=== PATIENT | male | born 2000 | race Caucasian/White ===

== ENCOUNTER 2024-03-24 18:38 | Emergency (ER) | payer MEDICAID, OTHER ==
[~2024-03-24] VITALS: Ht 170.2 cm; Wt 81.0 kg
--- NOTE | 2024-03-24 18:53 | ED.PDOC ---
Psychiatric HPI Comments 23 Y M CLAIRE, presents to ED with CC of mental health. Per EMS, patient is coming from home where father called EMS due to son actively hallucinating in his room. Per EMS patient's father states, that patient does have a mental disability however, did not specify. Patient is actively hallucinating and no other medical history is obtainable at this time. Patient does deny HI or SI. Chief Complaint: Mental Health Time Seen by MD: 18:50 Reviewed Notes: Nurses Notes, Transformation Consultant Notes, Allergies Information Source: Patient, Emergency Med Personnel Mode of Arrival: EMS Severity of Pain: None Severity of Mental Status: None Severity of Symptoms: None Timing: Days Presents with: None Ingestion: None Circumstance: None Current substance abuse: None Stressors: None History of: None Quality: Hallucinations Location: None Location of pain or injury: None Associated signs and symptoms: Hallucinations Past Medical History PAST MEDICAL HISTORY: Denies Surgical History: Denies all surgeries Family History Family History: Unknown Social History Smoker: Pt Confused Alcohol: Pt Confused Drugs: Pt Confused Lives In: Pt Confused Unable to Obtain due to: Altered Mental Status Physical Exam General Appearance: Other (The patient was acting bizarre) HEENT: Normal ENT Inspection, Pharynx Normal, TMs Normal Neck: Full Range of Motion, Non-Tender, Normal, Normal Inspection Respiratory: Chest Non-Tender, Lungs Clear, No Accessory Muscle Use, No Respiratory Distress, Normal Breath Sounds Cardiovascular: No Edema, No JVD, No Murmur, No Gallop, Normal Peripheral Pulses, Regular Rate/Rhythm Breast Exam: Deferred Gastrointestinal: No Organomegaly, Non Tender, No Pulsatile Mass, Normal Bowel Sounds, Soft Genitalia: Deferred Pelvic: Deferred Rectal: Deferred Extremities: No calf tenderness, Normal capillary refill, Normal inspection, Normal range of motion, Non-tender, No pedal edema Musculoskeletal : Apperance: Normal Neurologic: Alert, check out cashier II-XII nml as Tested, Motor Weakness, No Sensory Deficits, Other (The patient was not suicidal or homicidal) Cerebellar Function: Normal Reflexes: Normal Skin: Dry, Normal Color, Warm Lymphatic: No Adenopathy Was a procedure done? Was a procedure done?: No Psych Differential Dx Psych. Differential Dx: Bipolar Disorder, Schizoprenia, Sleepless Intoxication Differential Dx: Hallucinations X-Ray, Labs, Meds, VS Vital Signs Date Time Temp Pulse Resp B/P (MAP) Pulse Ox O2 Delivery O2 Flow Rate FiO2 03/24/24 19:25 94 18 129/75 (93) 97 03/24/24 18:52 97.9 120 20 152/92 (112) 98 Lab Test 03/24/24 19:22 Range/Units White Blood Count 11.5 H 4.4-10.8 10^3/uL Red Blood Count 5.20 4.5-5.90 10^6/uL Hemoglobin 16.2 13.5-17.5 g/dL Hematocrit 46.8 41.0-53.0 % Mean Corpuscular Volume 90.0 80.0-100.0 fL Mean Corpuscular Hemoglobin 31.2 28.0-32.0 pg Mean Corpuscular Hemoglobin Concent 34.7 32.0-36.0 g/dL Red Cell Distribution Width 12.6 11.8-14.3 % Platelet Count 402 140-450 10^3/uL Mean Platelet Volume 6.6 L 6.9-10.8 fL Neutrophils (%) (Auto) 76.9 37.0-80.0 % Lymphocytes (%) (Auto) 15.1 10.0-50.0 % Monocytes (%) (Auto) 7.0 0.0-12.0 % Eosinophils (%) (Auto) 0.7 0.0-7.0 % Basophils (%) (Auto) 0.3 0.0-2.0 % Neutrophils # (Auto) 8.8 H 1.6-8.6 10 ^3/uL Lymphocytes # (Auto) 1.7 0.4-5.4 10 ^3/uL Monocytes # (Auto) 0.8 0-1.3 10 ^3/uL Eosinophils # (Auto) 0.1 0-0.8 10 ^3/uL Basophils # (Auto) 0 0-0.2 10 ^3/uL Nucleated Red Blood Cells 0.1 % Sodium Level 141 136-145 mmol/L Potassium Level 3.9 3.5-5.1 mmol/L Chloride Level 107 98-107 mmol/L Carbon Dioxide Level 21 20-31 mmol/L Anion Gap 13 5-15 Blood Urea Nitrogen 14 9-23 mg/dL Creatinine 1.09 0.700-1.30 mg/dL Glomerular Filtration Rate Calc 98 >90 mL/min BUN/Creatinine Ratio 12.8 10.0-20.0 Serum Glucose 94 74-106 mg/dL Calcium Level 10.6 H 8.7-10.4 mg/dL Plasma/Serum Blood Alcohol 4.1 <10 mg/dL Current Medications Medications (Trade) Dose Ordered Sig/Johnny Route Start Time Stop Time Status Last Admin Haloperidol Lactate (Haldol) 5 mg ONCE ONCE IM 03/24/24 18:45 03/24/24 18:47 DC 03/24/24 19:35 Diphenhydramine HCl (Benadryl Injection) 25 mg ONCE ONCE IM 03/24/24 18:45 03/24/24 18:47 DC 03/24/24 19:35 Lorazepam (Ativan Inj) 1 mg ONCE ONCE IM 03/24/24 18:45 03/24/24 18:47 DC 03/24/24 19:35 The patient's CBC shows an elevated white blood cell count of 11.5 The rest of the CBC is within normal limits The chemistry panel is within normal limits. The patient was given Haldol 5 mg IM The patient was also given diphenhydramine at 25 mg IM The patient was given Ativan 1 mg IM The patient initially remained somewhat uncooperative but was then placed in four-point restraints and seems to be more cooperative The patient will be signed out to Dr. Parekh Time of 1ST Reevaluation: 19:20 Reevaluation 1ST: Unchanged Patient Education/Counseling: Diagnosis, Treatment, Prognosis Family Education/Counseling: No Family Present Additional Information - I reviewed the following notes from patient's past medical encounters: NONE - The following tests were ordered, and results were reviewed by me: LABS - Additional information was gathered from interviewing the following independent Historian: EMS - I discussed treatments and results with medical personnel and: FAMILY Departure 1 Departure Time of Disposition: 20:31 Impression: Primary Impression: Acute psychosis Disposition: 30 STILL A PATIENT Condition: Fair Critical Care Note Critical Care Time?: No Stability Stability form required: No Heart Score Heart Score: Heart Score Response (Comments) Value History N/A 0 EKG N/A 0 Age N/A 0 Risk Factors N/A 0 Troponin N/A 0 Total 0 I personally scribed for HOMA PALUMBO MD ([email or web address]) on 03/24/24 at 18:53. Electronically submitted by Sandy Klein ([email or web address]). I personally scribed for HOMA PALUMBO MD ([email or web address]) on 03/24/24 at 18:58. Electronically submitted by Sandy Klein ([email or web address]). I personally scribed for HOMA PALUMBO MD ([email or web address]) on 03/24/24 at 20:19. Electronically submitted by Sandy Klein ([email or web address]). HOMA PALUMBO MD Mar 24, 2024 18:53
[2024-03-24 19:25] VITALS: PULSE 94; RESP 18; O2SAT 97
[2024-03-24] MEDS: diphenhdrAMINE HCL 50 MG/1 ML VL IM ONE ×2 (19:35→22:08)
[2024-03-24] MEDS: HALOPERIDOL LACTATE 5 MG/ML INJ VIAL IM ONE ×2 (19:35→22:08)
[2024-03-24] MEDS: LORazepam 2MG/ML-1ML VIAL IM ONE ×2 (19:35→22:08)
[2024-03-24 20:08] LABS: Basophils # (auto) 0 10 ^3/uL (0-0.2); Basophils % (auto) 0.3 % (0.0-2.0); Eosinophils # (auto) 0.1 10 ^3/uL (0-0.8); Eosinophils % (auto) 0.7 % (0.0-7.0); Hematocrit 46.8 % (41.0-53.0); Hemoglobin 16.2 g/dL (13.5-17.5); Lymphocytes # (auto) 1.7 10 ^3/uL (0.4-5.4); Lymphocytes % (auto) 15.1 % (10.0-50.0); Mean Corpuscular Hemoglobin 31.2 pg (28.0-32.0); Mean Corpuscular Hgb Conc. 34.7 g/dL (32.0-36.0); Monocytes # (auto) 0.8 10 ^3/uL (0-1.3); Neutrophils # (auto) 8.8 10 ^3/uL (1.6-8.6); Neutrophils % (auto) 76.9 % (37.0-80.0); Nucleated Red Blood Cells % 0.1 %; Platelet Count (auto) 402 10^3/uL (140-450); Red Cell Distribution Width 12.6 % (11.8-14.3); White Blood Cell 11.5 10^3/uL (4.4-10.8)
[2024-03-24 20:17] LABS: Anion Gap 13 (5-15); Carbon Dioxide 21 mmol/L (20-31); Potassium 3.9 mmol/L (3.5-5.1); Sodium 141 mmol/L (136-145)
[2024-03-24 20:20] LABS: Calcium 10.6 mg/dL (8.7-10.4); Chloride 107 mmol/L (98-107)
[2024-03-24 20:23] LABS: BUN/Creatinine Ratio 12.8 (10.0-20.0); Blood Alcohol 4.1 mg/dL (<10); Blood Urea Nitrogen 14 mg/dL (9-23); Glucose 94 mg/dL (74-106)
[2024-03-24 21:20] LABS: Urine Bacteria None Seen /hpf (None Seen)
[2024-03-24 21:31] LABS: Urine Blood Negative /uL (Negative); Urine Clarity Clear (Clear); Urine Color Yellow (Yellow); Urine Mucus MODERATE (None Seen); Urine Protein, UAD 1+ (Negative); Urine Specific Gravity 1.037 (1.001-1.035); Urine Squamous Epithelial Cell None Seen /hpf (<5); Urine Urobilinogen 3 mg/dL (Negative); Urine WBC 2 /hpf (0 - 3)
[2024-03-24 21:37] LABS: Opiate Scree,Urine Neg (NEGATIVE)
[2024-03-24 21:38] LABS: Cannabinoid Screen, Urine Pos (NEGATIVE); Phencyclidine Screen, Urine Neg (NEGATIVE)
[2024-03-24 21:49] LABS: Amphetamine Screen, Urine Neg (NEGATIVE); Barbiturate Scree,Urine Neg (NEGATIVE); Benzodiazephine Screen, Urine Pos (NEGATIVE); Cocaine Screen, Urine Neg (NEGATIVE)
[2024-03-24 23:40] VITALS: RESP 18; O2SAT 96
[2024-03-25] MEDS: MIDAZOLAM HCL 2MG/2ML 2ml VIAL (1mg/ml) IM ONE (00:35)
[2024-03-25 08:25] VITALS: PULSE 109; RESP 17; O2SAT 100
[2024-03-25] MEDS: HALOPERIDOL LACTATE 5 MG/ML INJ VIAL IM ONE (09:34)
[2024-03-25] MEDS: LORazepam 2MG/ML-1ML VIAL IM ONE (09:35)
[2024-03-25] MEDS: diphenhdrAMINE HCL 50 MG/1 ML VL IM ONE (09:35)
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
[2024-03-25 20:08] VITALS: BP 136/63; PULSE 80; RESP 14; TEMP 97.6; O2SAT 96
== END 2024-03-25 20:10 | disposition home or self-care (01) ==
LOC: EDBD 18:38 → ER 18:38
DX: F23 Brief psychotic disorder (principal)
CPT/HCPCS: 36415; 80048; 80307; 80320; 81001; 85025; 96372; 99285; J1200; J1630; J2060; J2250